=== PATIENT | female | born 2000 | race Two or more races ===

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

== ENCOUNTER 2019-01-17 04:06 | Emergency (ER) | payer OTHER ==
--- NOTE | 2019-01-17 05:05 | ER Document Report ---
ED General - General Information source: Patient Cannot obtain history due to: Intoxicated TRAVEL OUTSIDE OF THE [place] IN LAST 30 DAYS: No - Related Data Home Medications: Zoloft. Control <MARY DOS SANTOS - Last Filed: 01/17/19 05:02> <NICHELLE PALMER - Last Filed: 01/17/19 10:04> <PAUL KONG ABDIAZIZ - Last Filed: 01/17/19 10:12> - General Chief Complaint: Psych Problem Stated Complaint: SUICIDAL IDEATION Time Seen by Provider: 01/17/19 05:02 Primary Care Provider: AUSTIN GUEVARA MD [NO LOCAL MD] - Follow up in 3-5 days AMELIA SUMMERS MD [Primary Care Provider] - Follow up as needed Notes: This 18-year-old female presents to the emergency department with a history of "intoxication" and apparently voicing some suicidal ideation. The patient re fused to talk with me, stating that, "I want to go home" patient refused to be examined or answer any further questions. Apparently the nurse has drawn blood and collected a urine for further studies. I have suggested that we await those studies and further evaluation and assessment can be performed when the patient is cooperative. (MARY DOS SANTOS) - Related Data Allergies/Adverse Reactions: No Known Allergies Allergy (Verified 05/13/16 15:30) Past Medical History - Social History Smoking Status: Never Smoker Chew tobacco use (# tins/day): No Frequency of alcohol use: Social Drug Abuse: None Family History: Reviewed & Not Pertinent Patient has suicidal ideation: Yes Patient has homicidal ideation: Yes Renal/ Medical History: Denies: Hx Peritoneal Dialysis Psychiatric Medical History: Reports: Hx Depression Past Surgical History: Reports: Hx Oral Surgery - wisdom teeth <MARY DOS SANTOS - Last Filed: 01/17/19 05:02> Physical Exam - Vital signs Vitals: Temp Pulse Resp BP Pulse Ox 97.6 F 92 H 20 109/65 96 01/17/19 04:46 01/17/19 04:46 01/17/19 04:46 01/17/19 04:46 01/17/19 04:46 Course - Laboratory Result Diagrams: 01/17/19 04:38 01/17/19 04:38 <NICHELLE PALMER - Last Filed: 01/17/19 10:04> - Laboratory Result Diagrams: 01/17/19 04:38 01/17/19 04:38 <PAUL KONG IV - Last Filed: 01/17/19 10:12> - Re-evaluation Re-evalutation: 01/17/19 10:10 Patient seen and evaluated by this MD at 0955 hrs. Patient is alert and oriented x3 patient appears clinically sober patient has a friend in the room who contracts for safety and states she will take patient home and will stay with her until noon today. Patient was informed of her medical screening exam results and cautioned about the excessive use of alcohol. (PAUL KONG IV) - Vital Signs Vital signs: Temp Pulse Resp BP Pulse Ox 97.6 F 92 H 20 109/65 96 01/17/19 04:46 01/17/19 04:46 01/17/19 04:46 01/17/19 04:46 01/17/19 04:46 - Laboratory Laboratory results interpreted by me: 01/17/19 01/17/19 01/17/19 04:38 04:38 08:25 RBC 5.40 H MCV 76 L MCH 24.7 L RDW 16.0 H AST 66 H Total Protein 8.4 H Urine Blood LARGE H Salicylates < 1.0 L Acetaminophen < 10 L Discharge <MARY DOS SANTOS - Last Filed: 01/17/19 05:02> <NICHELLE PALMER - Last Filed: 01/17/19 10:04> <PAUL KONG IV - Last Filed: 01/17/19 10:12> - Discharge Clinical Impression: Alcohol intoxication Condition: Stable Disposition: HOME, SELF-CARE Additional Instructions: You have been evaluated both medical and behavioral health teams and been deemed appropriate for discharge. You are highly encouraged to refrain from drinking alcohol. Is also recommended you speak with your outpatient mental health provider, [facility] [place], to add therapeutic services. ACUTE ALCOHOL INTOXICATION and ALCOHOL ABUSE: Your evaluation revealed very high levels of alcohol. You can from drinking a large amount of alcohol rapidly! Further, there's the risk of falls, traffic accidents, and fights. A high portion (about 50 percent) of the serious injuries seen in hospital emergency rooms are caused by alcohol. Alcohol overdosage is usually due to an underlying emotional or psychiatric problem. You may benefit from counselling. If "binge" drinking is an ongoing problem for you, or if you drink ANY AMOUNT of alcohol EVERY day, you most likely have a tendency to alcoholism. You should avoid alcohol totally. We can refer you for treatment. Persons with alcohol problems are often also prone to other addictions -- you should discuss any use of medications or drugs with the doctor. You should be watched at home for the next several hours by someone who has not been drinking. Get extra fluids for the next 24 hours. Call the doctor if there is repeated vomiting, increasing headache, decreasing level of alertness, or any other worsening. FOLLOW-UP CARE: If you have been referred to a physician for follow-up care, call the physicians office for an appointment as you were instructed or within the next two days. If you experience worsening or a significant change in your symptoms, notify the physician immediately or return to the Emergency Department at any time for re-evaluation. Referrals: AMELIA SUMMERS MD [Primary Care Provider] - Follow up as needed AUSTIN GUEVARA MD [NO LOCAL MD] - Follow up in 3-5 days
[2019-01-17 05:29] LABS: ABSOLUTE EOSINOPHILS # (AUTO) 0.1 10^3/uL (0.0-0.6); ABSOLUTE LYMPHOCYTES (AUTO) 1.7 10^3/uL (0.5-4.7); ABSOLUTE MONOCYTES (AUTO) 0.4 10^3/uL (0.1-1.4); ABSOLUTE NEUT (AUTO) 3.9 10^3/uL (1.7-8.2); BASOPHILS % (AUTO) 0.4 % (0-2); EOSINOPHILS % (AUTO) 1.6 % (0-6); HEMOGLOBIN 13.3 g/dL (12.0-15.5); LYMPHOCYTES % (AUTO) 27.4 % (13-45); MEAN CORPUSCULAR HEMOGLOBIN 24.7 pg (27.0-33.4); MEAN CORPUSCULAR HGB CONC 32.5 g/dL (32.0-36.0); MEAN CORPUSCULAR VOLUME 76 fl (80-97); MONOCYTES % (AUTO) 6.4 % (3-13); PLATELET COUNT 321 10^3/uL (150-450); SEGMENTED NEUTROPHILS % (AUTO) 64.2 % (42-78); TOTAL CELLS COUNTED % (AUTO) 100 %; WHITE BLOOD COUNT 6.1 10^3/uL (4.0-10.5)
[2019-01-17 05:50] LABS: ACETAMINOPHEN < 10 ug/mL (10-30); ALBUMIN 4.4 g/dL (3.7-5.6); ALCOHOL 147 mg/dL (NONE DETECTED); ALKALINE PHOSPHATASE 91 U/L (50-135); ANION GAP 12 (5-19); ASPARTATE AMINO TRANSFERASE 66 U/L (5-30); BILIRUBIN,DIRECT 0.1 mg/dL (0.0-0.4); BILIRUBIN,TOTAL 0.3 mg/dL (0.2-1.3); BLOOD UREA NITROGEN 11 mg/dL (7-20); CALCIUM 9.4 mg/dL (8.4-10.2); CARBON DIOXIDE 26 mmol/L (22-30); CHLORIDE 106 mmol/L (98-107); GLUCOSE 108 mg/dL (75-110); POTASSIUM 3.8 mmol/L (3.6-5.0); SALICYLATE < 1.0 mg/dL (2.0-20.0); TOTAL PROTEIN 8.4 g/dL (6.3-8.2)
[2019-01-17 08:43] LABS: APPEARANCE,URINE SLIGHTLY-CLOUDY; BILIRUBIN,URINE NEGATIVE (NEGATIVE); COLOR,URINE YELLOW; GLUCOSE, URINE NEGATIVE (NEGATIVE); KETONES,URINE NEGATIVE (NEGATIVE); LEUKOCYTE ESTERASE,URINE NEGATIVE (NEGATIVE); NITRITE,URINE NEGATIVE (NEGATIVE); PROTEIN,URINE NEGATIVE (NEGATIVE); URINE SPECIFIC GRAVITY 1.018; UROBILINOGEN,URINE NEGATIVE mg/dL (<2.0)
[2019-01-17 08:55] LABS: URINE AMPHETAMINES SCREEN NEGATIVE; URINE BARBITURATES SCREEN NEGATIVE; URINE BENZODIAZEPINES SCREEN NEGATIVE; URINE COCAINE SCREEN NEGATIVE; URINE MARIJUANA (THC) SCREEN NEGATIVE; URINE METHADONE SCREEN NEGATIVE; URINE PHENCYCLIDINE SCREEN NEGATIVE
[2019-01-17 10:34] VITALS: BP 129/71
--- NOTE | 2019-01-17 11:15 | EKG REPORT ---
SEVERITY:- NORMAL ECG - SINUS RHYTHM : Confirmed by: Cassidy Moreau MD 17-Jan-2019 11:13:55
== END 2019-01-17 10:34 | disposition home or self-care (01) ==
LOC: ER 04:06
DX: F10.920 Alcohol use, unspecified with intoxication, uncomplicated (principal)
CPT/HCPCS: 36415; 80053; 80307; 81001; 84703; 85025; 93005; 93010; 99285